=== PATIENT | male | born 2000 | race Caucasian/White ===

== ENCOUNTER 2018-05-05 15:12 | Emergency (ER) | payer OTHER ==
[~2018-05-05] VITALS: Ht 182.9 cm; Wt 72.8 kg
[2018-05-05 15:19] VITALS: BP 121/68; Ht 182.9 cm; Wt 72.8 kg
== END 2018-05-05 17:14 | disposition home or self-care (01) ==
LOC: ED 15:12
DX: S40.012A Contusion of left shoulder, initial encounter (principal); W20.8XXA Other cause of strike by thrown, projected or falling object, initial encounter; Y93.89 Activity, other specified; Y92.89 Other specified places as the place of occurrence of the external cause; Y99.0 Civilian activity done for income or pay